=== PATIENT | female | born 1975 | race Caucasian/White ===

== ENCOUNTER 2017-01-23 19:09 | Emergency (ER) | payer MEDICAID, OTHER ==
[~2017-01-23] VITALS: Ht 152.4 cm; Wt 59.0 kg
[2017-01-23 20:35] VITALS: Ht 152.4 cm; Wt 59.0 kg
[2017-01-23] MEDS ORDERED: FAMOTIDINE 20 MG TAB PO ONE (21:30)
[2017-01-23] MEDS ORDERED: LIDOCAINE/MYLANTA 40 ML BTL PO ONE (21:30)
[2017-01-23 22:35] LABS: BASOPHILS % 0.5 % (0.0-2.0); EOSINOPHILS # 0.1 10^3/ul (0.0-0.5); EOSINOPHILS % 1.7 % (0.0-7.0); HEMATOCRIT 34.6 % (37.0-47.0); HEMOGLOBIN 11.2 g/dl (12.0-16.0); LYMPHOCYTES # 1.9 10^3/ul (0.8-2.9); LYMPHOCYTES % 29.7 % (15.0-51.0); MEAN CORPUSCULAR HEMOGLOBIN 28.1 pg (29.0-33.0); MEAN CORPUSCULAR HGB CONC 32.4 g/dl (32.0-37.0); MEAN CORPUSCULAR VOLUME 86.7 fl (82.0-101.0); MEAN PLATELET VOLUME 11.3 fl (7.4-10.4); MONOCYTE # 0.7 10^3/ul (0.3-0.9); MONOCYTES % 10.1 % (0.0-11.0); NEUTROPHILS % 57.7 % (39.0-77.0); PLATELET COUNT 263 10^3/UL (140-415); RED BLOOD COUNT 3.99 10^6/ul (4.20-5.40); RED CELL DISTRIBUTION WIDTH 13.2 % (11.5-14.5); WHITE BLOOD COUNT 6.4 10^3/ul (4.8-10.8)
[2017-01-23 22:50] LABS: ADD UMIC NO; UR ASCORBIC ACID NEGATIVE (NEGATIVE); UR BILIRUBIN (Dip) NEGATIVE (NEGATIVE); UR BLOOD (Dip) NEGATIVE (NEGATIVE); UR CLARITY CLEAR (CLEAR); UR COLOR YELLOW (YELLOW); UR GLUCOSE (Dip) NEGATIVE (NEGATIVE); UR KETONES (Dip) TRACE mg/dL (NEGATIVE); UR LEUKOCYTE ESTERASE (Dip) NEGATIVE Leu/ul (NEGATIVE); UR NITRITE (Dip) NEGATIVE (NEGATIVE); UR SPECIFIC GRAVITY (Dip) 1.026 (1.003-1.030); UR TOTAL PROTEIN (Dip) NEGATIVE (NEGATIVE); UR UROBILINOGEN (Dip) NEGATIVE (NEGATIVE)
[2017-01-23 22:58] LABS: ALBUMIN 4.8 g/dl (3.3-4.9); ALBUMIN/GLOBULIN RATIO 1.33; BILIRUBIN,INDIRECT 0.4 mg/dl (0-1.1); BILIRUBIN,TOTAL 0.4 mg/dl (0.2-1.3); CREATININE 0.67 mg/dl (0.44-1.00); POTASSIUM 4.2 mmol/L (3.5-5.1); TOTAL PROTEIN 8.4 g/dl (6.1-8.1)
--- NOTE | 2017-01-23 23:07 | ERD ---
ER Documentation Chief Complaint Date/Time DATE: 01/23/17 TIME: 23:01 Chief Complaint right upper abdominal pain x2-3 months with nausea. Hx: Cholecystectomy '07 HPI This is a 41-year-old female presenting to emergency department with right upper abdominal pain with nausea for 3 months. Patient states she had a cholecystectomy done 10 years ago and the pain that she is feeling now feels similar. No fevers or chills. Patient has nausea however no vomiting or diarrhea. Patient did not take any medications for this. No lower abdominal pain. No dysuria, hematuria, urinary frequency or urgency. No pelvic pain. No back or chest pain. No shortness of breath or difficulty breathing. ROS All systems reviewed and are negative except as per history of present illness. Allergies Allergies: Coded Allergies: No Known Allergy (Unverified , 01/23/17) PMhx/Soc History of Surgery: Yes (Cholecystectomy) Anesthesia Reaction: No Hx Neurological Disorder: No Hx Respiratory Disorders: No Hx Cardiac Disorders: No Hx Psychiatric Problems: No Hx Miscellaneous Medical Probl: No Hx Alcohol Use: No Hx Substance Use: No Hx Tobacco Use: No Smoking Status: Never smoker Physical Exam Vitals Vital Signs Date Time Temp Pulse Resp B/P Pulse Ox O2 Delivery O2 Flow Rate FiO2 01/23/17 20:35 98.8 83 18 130/79 100 Physical Exam Const: No acute distress, alert Head: Atraumatic Eyes: Normal Conjunctiva ENT: Normal External Ears, Nose and Mouth. Neck: Full range of motion..~ No meningismus. Resp: Clear to auscultation bilaterally. No wheezing, rhonchi or crackles. Cardio: Regular rate and rhythm, no murmurs Abd: Soft, non tender, non distended. Normal bowel sounds. negative Freeman's sign. negative rebound tenderness. Negative for tenderness at McBurney's point. Skin: No petechiae or rashes Back: No midline or flank tenderness. No CVA tenderness. Ext: No cyanosis, or edema Neur: Awake and alert Psych: Normal Mood and Affect Result Diagram: 01/23/17 2210 01/23/17 2210 Results 24 hrs Laboratory Tests Test 01/23/17 21:54 01/23/17 22:10 Urine Color YELLOW Urine Clarity CLEAR Urine pH 5.0 Urine Specific [place] 1.026 Urine Ketones TRACEmg/dL Urine Nitrite NEGATIVEmg/dL Urine Bilirubin NEGATIVEmg/dL Urine Urobilinogen NEGATIVEmg/dL Urine Leukocyte Esterase NEGATIVELeu/ul Urine Hemoglobin NEGATIVEmg/dL Urine Glucose NEGATIVEmg/dL Urine Total Protein NEGATIVEmg/dl White Blood Count 6.410^3/ul Red Blood Count 3.9910^6/ul Hemoglobin 11.2g/dl Hematocrit 34.6% Mean Corpuscular Volume 86.7fl Mean Corpuscular Hemoglobin 28.1pg Mean Corpuscular Hemoglobin Concent 32.4g/dl Red Cell Distribution Width 13.2% Platelet Count 02330^3/UL Mean Platelet Volume 11.3fl Neutrophils % 57.7% Lymphocytes % 29.7% Monocytes % 10.1% Eosinophils % 1.7% Basophils % 0.5% Nucleated Red Blood Cells % 0.0/100WBC Neutrophils # (Manual) 3.710^3/ul Lymphocytes # 1.910^3/ul Monocytes # 0.710^3/ul Eosinophils # 0.110^3/ul Basophils # 0.010^3/ul Nucleated Red Blood Cells # 0.010^3/ul Sodium Level 146mmol/L Potassium Level 4.2mmol/L Chloride Level 106mmol/L Carbon Dioxide Level 24mmol/L Anion Gap 20 Blood Urea Nitrogen 12mg/dl Creatinine 0.67mg/dl Glucose Level 93mg/dl Calcium Level 9.0mg/dl Total Bilirubin 0.4mg/dl Direct Bilirubin 0.00mg/dl Indirect Bilirubin 0.4mg/dl Aspartate Amino Transf (AST/SGOT) 24IU/L Alanine Aminotransferase (ALT/SGPT) 36IU/L Alkaline Phosphatase 62IU/L Total Protein 8.4g/dl Albumin 4.8g/dl Globulin 3.60g/dl Albumin/Globulin Ratio 1.33 Lipase 75U/L Current Medications Medications (Trade) Dose Ordered Sig/Debra Route PRN Reason Start Time Stop Time Status Last Admin Dose Admin Miscellaneous Medication (Gi Cocktail (2)) 40 ml ONCE ONCE PO 01/23/17 21:30 01/23/17 21:32 DC 01/23/17 22:09 Famotidine (Pepcid) 20 mg ONCE ONCE PO 01/23/17 21:30 01/23/17 21:32 DC 01/23/17 22:10 Procedures/[place]M [place] [id number] Rad[facility] Main Line: [phone] DIAGNOSTIC IMAGING REPORT Patient: JW ARIAS : 1975 Age: 41 Sex: F [id number] DOS: 01/23/172128 Ordering MD: CRISELDA SALMON NP Location: [facility]TE Room/Bed: PROCEDURE: US right upper quadrant CLINICAL INDICATION: Abdominal pain TECHNIQUE: Multiple real-time images were acquired of the patient's right upper abdomen utilizing a high resolution transducer. COMPARISON: None available FINDINGS: Liver: Normal in size, contour and echogenicity. Normal directional blood flow is seen within the patent main portal vein. The maximum dimension estimated at 12.8 cm . Gallbladder: Surgically removed. No abnormality in the gallbladder fossa is evident. Common bile duct: Normal; 3.3 mm. There is no evidence for choledocholithiasis. Right Kidney: Normal; maximum length measured at approximately 10 cm. Pancreas: Visualized portions are normal. The tail is partially obscured by bowel gas. RPTAT:HJJR IMPRESSION: Changes of prior cholecystectomy, otherwise unremarkable right upper quadrant ultrasound. MDML 41 year old female presents to ER with right upper abdominal pain and nausea. Patient has intermittent pain for the past 3 months. Patient states pain seems similar to when she had gallstones. No fevers or chills. Patient is afebrile upon arrival to ED. No chest pain or back pain. No shortness of breath or difficulty breathing. No signs or symptoms of respiratory distress. Oxygen saturation 100% on room air. Vital signs are stable. Labs drawn. Patient given Pepcid and GI cocktail p.o.CBC shows no significant anemia or infection. CMP shows no significant electrolyte imbalance. Liver enzymes are normal. Bilirubin is normal. Glucose is normal. Lipase is 75. UA shows trace ketones otherwise negative. Gallbladder ultrasound reviewed by radiologist as changes of prior cholecystectomy, otherwise unremarkable. Patient remains alert and calm throughout ED visit. Vitals are stable. pain has improved. Low suspicion for acute surgical abdomen, obstruction, peritonitis, acute cholangitis, acute cholecystitis or pancreatitis. Patient is appropriate for outpatient management and can follow up with their PCP in 2-3 days. Patient instructed to return to ED sooner if pain worsens or is intolerable, high fever or new symptoms such as anorexia, not tolerating PO, severe diarrhea or chest pain. Patient verbalizes understanding. Disclaimer: Inadvertent spelling and grammatical errors are likely due to EHR/ dictation software use and do not reflect on the overall quality of patient care. Also, please note that the electronic time recorded on this note does not necessarily reflect the actual time of the patient encounter. Departure Diagnosis: Primary Impression: Abdominal pain Abdominal location: right upper quadrant Qualified Code: R10.11 - Right upper quadrant abdominal pain Condition: Stable CRISELDA SALMON NP Jan 23, 2017 23:07
--- NOTE | 2017-01-23 23:14 | RADRPT ---
PROCEDURE: US right upper quadrant CLINICAL INDICATION: Abdominal pain TECHNIQUE: Multiple real-time images were acquired of the patient's right upper abdomen utilizing a high resolution transducer. COMPARISON: None available FINDINGS: Liver: Normal in size, contour and echogenicity. Normal directional blood flow is seen within the p atent main portal vein. The maximum dimension estimated at 12.8 cm . Gallbladder: Surgically removed. No abnormality in the gallbladder fossa is evident. Common bile duct: Normal; 3.3 mm. There is no evidence for choledocholithiasis. Right Kidney: Normal; maximum length measured at approximately 10 cm. Pancreas: Visualized portions are normal. The tail is partially obscured by bowel gas. RPTAT:HJJR IMPRESSION: Changes of prior cholecystectomy, otherwise unremarkable right upper quadrant ultrasound. Physician Niles Date Time Electronically viewed and signed by Physician Niles on 01/23/2017 23:14 /
[2017-01-23] MEDS ORDERED: ONDA4TAB8 PO (23:19)
[2017-01-23 23:54] VITALS: BP 127/67; PULSE 64; RESP 15; TEMP 98.7
== END 2017-01-23 23:54 | disposition home or self-care (01) ==
LOC: FTE 19:09 → EDBD 19:09 → FTE 23:54
DX: R10.11 Right upper quadrant pain (principal); R11.0 Nausea
CPT/HCPCS: 36415; 76705; 80053; 81003; 83690; 85025; Z7502; Z7610

== ENCOUNTER 2017-11-30 19:08 | Emergency (ER) | END 2017-11-30 21:54 | disposition home or self-care (01) ==

== ENCOUNTER 2018-12-04 15:27 | Emergency (ER) | payer MEDICAID, OTHER ==
[~2018-12-04] VITALS: Ht 152.4 cm; Wt 60.6 kg
[~2018-12-04 15:27] MED LIST: ACET500C5 PO; FAMO-96 PO; ONDA4TAB8 PO
[2018-12-04 15:30] VITALS: BP 138/59; PULSE 69; RESP 18; Ht 152.4 cm; Wt 60.6 kg
[2018-12-04] MEDS ORDERED: KETOROLAC 30 MG INJ IM STA (16:21)
--- NOTE | 2018-12-04 16:27 | ERD ---
ER Documentation Chief Complaint Chief Complaint lt lower back pain radiating to lt groin and lt thigh since sunday HPI This is a 43-year-old female patient who presents emergency room with complaint of left lower back pain that radiates into the left groin and thigh x5 days. No fever, no nausea vomiting, no dysuria, no trauma. Patient states that she has history of sciatica. LMP last week. Patient ambulatory. States that she took Aleve it did not help, states she took 1 of her husbands Kennedy and that did not help either. States that she has been told from prior ultrasounds that she has kidney stones in her kidneys. ROS All systems reviewed and are negative except as per history of present illness. Medications Home Meds Active Scripts Ibuprofen* (Motrin*) 600 Mg Tab, 600 MG PO Q6 for PAIN for 10 Days, #30 TAB Prov:MELONY SCHULER NP 12/04/18 Cyclobenzaprine Hcl* (Cyclobenzaprine Hcl*) 10 Mg Tablet, 5 MG PO BID for MUSCLE PAIN for 7 Days, #14 TAB Prov:MELONY SCHULER NP 12/04/18 Ondansetron Hcl* (Zofran*) 4 Mg Tablet, 4 MG PO Q6H for NAUSEA AND/OR VOMITING, #30 TAB Prov:MOISES MCKEON PA-C 11/30/17 Famotidine* (Pepcid*) 20 Mg Tablet, 20 MG PO BID for 10 Days, TAB Prov:MOISES MCKEON-C 11/30/17 Acetaminophen* (Tylophen*) 500 Mg Capsule, 1 CAP PO Q6H PRN for PAIN AND OR ELEVATED TEMP, #30 CAP Prov:MOISES MCKEON PA-C 11/30/17 Ondansetron Hcl* (Zofran*) 4 Mg Tablet, 4 MG PO Q6H for NAUSEA AND/OR VOMITING, #10 TAB Prov:CRISELDA SALMON NP 01/23/17 Allergies Allergies: Coded Allergies: No Known Allergy (Unverified , 01/23/17) PMhx/Soc History of Surgery: Yes (Cholecystectomy) Anesthesia Reaction: No Hx Neurological Disorder: No Hx Respiratory Disorders: No Hx Cardiac Disorders: No Hx Psychiatric Problems: No Hx Miscellaneous Medical Probl: No Hx Alcohol Use: No Hx Substance Use: No Hx Tobacco Use: No Smoking Status: Never smoker FmHx Family History: No diabetes, No coronary disease, No other Physical Exam Vitals Vital Signs Date Temp Pulse Resp B/P (MAP) Pulse Ox O2 O2 Flow FiO2 Time Delivery Rate 12/04/18 98.1 69 18 138/59 100 15:30 (85) Physical Exam Const: No acute distress Head: Atraumatic Eyes: Normal Conjunctiva, PERRL ENT: Normal External Ears, Nose and Mouth. Pharynx pink, moist, no lesions or exudate Neck: Full range of motion. No meningismus. No lymphadenopathy Resp: Clear to auscultation bilaterally Cardio: Regular rate and rhythm, no murmurs Abd: Soft, non distended. Normal bowel sounds. Tender at LLQ. Skin: No petechiae or rashes Back: No midline or flank tenderness, +CVT left. No spinal tenderness, no decreased range of motion, no deformities. Ext: No cyanosis, or edema. Back Exam: Skin: No bruising or rash Compartments: Soft Motor: Normal flexion and extension of bilateral hip/knee/ankle/foot, +tightness pain with straight leg raise to r/l leg, denies paresthesia Sensation: Intact to light touch throughout Bones: No midline TTP Neur: Awake and alert, steady gait, clear speech Psych: Normal Mood and Affect Pelvic Exam: Exam procedure and necessity was explained to patient. She was agreeable to exam. Pt was placed on pelvic bed, repositioned to the edge of the bed, blankets provided for modesty in individual exam room. External genitalia without lesions, abrasions, or abnormal anatomy. Plastic speculum gently inserted into vagina, cervix easily visualized. No foul odor, no discharge, no vaginal lesions or lacerations, no bleeding noted. Bimanual exam: negative adnexal tenderness, no masses palpated. No CMT. Results 24 hrs Laboratory Tests Test 12/04/18 16:40 12/04/18 16:53 POC Beta HCG, Qualitative NEGATIVE Bedside Urine pH (LAB) 7.0 Bedside Urine Protein (LAB) Negative Bedside Urine Glucose (UA) Negative Bedside Urine Ketones (LAB) Negative Bedside Urine Blood Trace-intact Bedside Urine Nitrite (LAB) Negative Bedside Urine Leukocyte Esterase (L Negative Current Medications Medications Dose Sig/Debra Start Time Status Last (Trade) Ordered Route PRN Stop Time Admin Dose Reason Admin Ketorolac 30 mg ONCE STAT 12/04/18 DC 12/04/18 Tromethamine IM 16:21 16:43 (Toradol) 12/04/18 16:22 Procedures/MDM PROCEDURES/MDM DIAGNOSTIC IMAGING: Read by radiologist. Pelvic ultrasound FINDINGS: The uterus measures 9.3 x 3.3 x 5.8 cm and is unremarkable. The thickness of the endometrium equals 3.6 mm. The right ovary measures 4.7 x 2.4 x 3.1 cm and is unremarkable. The left ovary measures 1.8 x 0.9 x 1.2 cm and is unremarkable. Color flow and spectral analysis demonstrates arterial and venous flow in both ovaries. No adnexal mass or free intrapelvic fluid is seen. IMPRESSION: No abnormality seen. Please see above. LAB INTERPRETATION: Urinalysis negative , negative glucose, negative ketones, negative nitrites, negative leukocytes, trace blood -Medications: Toradol Patient tolerated medication well with no adverse reactions. Patient reported improvement in pain. MDM: This is a 43-year-old female patient who presents emergency room with complaint of left lower quadrant pain x4 days. No fever, no nausea or vomiting, no dysuria, patient states she is having some thick vaginal discharge with brown- tinged blood. LMP 1 week ago, history of kidney stones, history of sciatica. As patient has multiple symptoms and complaints, the differential today included kidney stone, UTI, ovarian dysfunction such as torsion, ectopic , sciatica, low back pain. Urinalysis does not indicate urinary tract infection, negative , trace blood not significant for pyelonephritis or current obstructing or moving renal lithiasis. As patient states that she has history of having stones in her kidney, her pain possibly could be due to to a past stone, however without significant pain or hematuria or signs of infection, a CT of the abdomen pelvis did not seem appropriate at this time. As patient could isolate her pain to left lower quadrant upon palpation, and concern over dark blood-tinged vaginal discharge, ultrasound was ordered to evaluate for ovarian or vaginal abnormality, which was negative. Straight leg test was performed to evaluate for sciatica, patient denies radiculopathy symptoms bilaterally with straight leg test, instead describing a muscular tightness of her upper hips bilaterally and anterior thigh on the left with straight leg test. Patient will be treated for musculoskeletal strain at this time. Patient has been instructed on signs and symptoms of red flags and instructed to return to the emergency room immediately with worsening or changing of her symptoms including vaginal bleeding, fever, severe back pain, dysuria, difficulty with urination, hematuria. Patient is able to ambulate to treatment area without assistance. Patient is seated on the stretcher without obvious distress. There is no surface trauma. No muscle tenderness to palpation, no spasms, no step-off or deformity, patient is able to stand erect. Normal flexion and extension with lateral bending and rotation without limitation. Heel and toe walk with good strength Straight leg raise negative for radiculopathy sensation to light touch is intact. Due to patient's presentation today there is low suspicion for malignancy, infection, epidural abscess, cauda equina syndrome, herniation, AAA. Patient's musculoskeletal symptoms have stabilized while they have been evaluated in the department and are appropriate for outpatient work up. Patient is being discharged home with instructions to follow-up with primary care provider. Patient is also provided prescription for NSAID with instructions for use of heat, ice, stretching. DISPOSITION and PLAN: RX: Ibuprofen, Flexeril The patient has been discharge home to follow-up with community physician. Departure Diagnosis: Primary Impression: Back pain Back pain location: low back pain Chronicity: acute Back pain laterality: left Sciatica presence: without sciatica Qualified Codes: M54.5 - Low back pain Condition: Stable MELONY SCHULER NP Dec 04, 2018 16:27
[2018-12-04] MEDS ORDERED: CYCL10TA7 PO (18:30)
[2018-12-04] MEDS ORDERED: IBUP-1542 PO (18:30)
== END 2018-12-04 18:47 | disposition home or self-care (01) ==
LOC: FTE 15:27
DX: M54.5 Low back pain (principal)
CPT/HCPCS: 76856; 81003; 81025; J1885; 96372